=== PATIENT | female | born 1965 | race Caucasian/White ===

== ENCOUNTER 2018-07-11 10:22 | Outpatient (CLI) | payer OTHER ==
[~2018-07-11 10:22] MED LIST: ATENOLOL100 MG PO; CATAFLAN PO; CLONAZEPAM PO; GABAPENTIN600 MG PO; HYZAAR 100-251 EACH PO; KEFLEX500 MG PO; NORVASC5 MG PO; TRAMADOL HCL50 MG PO
== END 2018-07-11 10:35 | disposition home or self-care (01) ==
LOC: NUCLEAR 10:22
DX: I26.90 Septic pulmonary embolism without acute cor pulmonale (principal); I27.82 Chronic pulmonary embolism
CPT/HCPCS: 78580; A9540

== ENCOUNTER → 2020-05-12 12:39 | Outpatient (CLI) | payer OTHER | END | disposition home or self-care (01) | LOC: EKG 12:39 | PROVIDERS: ATTEND Internal Medicine Cardiovascular Disease | DX: I10 Essential (primary) hypertension (principal) ==